=== PATIENT | male | born 1945 | race Caucasian/White ===

== ENCOUNTER 2016-07-30 14:03 | Emergency (ER) | payer MEDICARE, BC ==
--- NOTE | 2016-07-30 14:53 | EDM.PDOC ---
ED HPI GENERAL MEDICAL PROBLEM - General Chief Complaint: Neuro Symptoms/Deficits Stated Complaint: POSSIBLE STROKE Time Seen by Provider: 07/30/16 14:03 Source of Information: Reports: Patient, Family History Limitations: Reports: No Limitations - History of Present Illness INITIAL COMMENTS - FREE TEXT/NARRATIVE: 71 y.o.w. with H/O HTN and hypercholestolemia came to ed with his SO due to naubness of his r face since last night. No Dizziness lightheadedness or any other acute medical issues. Onset: Today Onset Date: 07/29/16 Onset Time: 19:00 Duration: Hour(s): Location: Reports: Face Quality: Reports: Dull Severity: Mild Improves with: Reports: None Worsens with: Reports: None Associated Symptoms: Reports: No Other Symptoms - Related Data Allergies Allergy/AdvReac Type Severity Reaction Status Date / Time hydrocodone Allergy Hallucinati Verified 07/30/16 14:48 ons Home Meds: Home Meds Acyclovir [IJP: Acyclovir] 400 mg PO H #50 tab 07/30/16 [Rx] Aspirin [Halfprin] 81 mg PO DAILY 07/30/16 [History] Lisinopril/Hydrochlorothiazide [Lisinopril-Hctz 20-12.5 mg Tab] 1 each PO DAILY 07/30/16 [History] Lovastatin [Mevacor] 40 mg PO DAILY 07/30/16 [History] Metoprolol Tartrate 25 mg PO BID 07/30/16 [History] Omeprazole 20 mg PO DAILY 07/30/16 [History] Prochlorperazine [Compazine] 10 mg PO ASDIRECTED 07/30/16 [History] Social & Family History - Tobacco Use Smoking Status *Q: Never Smoker - Alcohol Use Days Per Week of Alcohol Use: 0 - Recreational Drug Use Recreational Drug Use: No ED ROS GENERAL - Review of Systems Review Of Systems: See Below Constitutional: Reports: No Symptoms HEENT: Reports: Other (numbnes r cheek) Respiratory: Reports: No Symptoms Cardiovascular: Reports: No Symptoms, Other (pt HR is 47 bpm, takes Metoprolol.) Endocrine: Reports: No Symptoms GI/Abdominal: Reports: No Symptoms : Reports: No Symptoms Musculoskeletal: Reports: No Symptoms Skin: Reports: No Symptoms Neurological: Reports: Other (numbness r face) Psychiatric: Reports: No Symptoms Hematologic/Lymphatic: Reports: No Symptoms Immunologic: Reports: No Symptoms ED EXAM, NEURO - Physical Exam Exam: See Below Exam Limited By: No Limitations General Appearance: Alert, WD/WN, No Apparent Distress Eye Exam: Bilateral Eye: Normal Inspection Ears: Normal External Exam Nose: Normal Inspection Throat/Mouth: Normal Inspection Head Exam: Atraumatic, Normocephalic Neck: Normal Inspection, Supple, Non-Tender, Full Range of Motion Respiratory/Chest: No Respiratory Distress, Lungs Clear, Normal Breath Sounds, No Accessory Muscle Use, Chest Non-Tender Cardiovascular: Bradycardia (Pt is on Metoprolol) GI/Abdominal: Normal Bowel Sounds (Male) Exam: Deferred Rectal (Males) Exam: Deferred Neurological: Alert, Normal Mood/Affect, Normal Dorsiflexion, CN II-XII Intact, Normal Plantar Flexion, Normal Gait Back Exam: Normal Inspection, Full Range of Motion Extremities: Normal Inspection, Normal Range of Motion, Non-Tender, No Pedal Edema Psychiatric: Normal Affect, Normal Mood Skin Exam: Warm, Dry, Intact, Normal Color, No Rash EKG INTERPRETATION EKG Date: 07/30/16 Time: 14:45 Rhythm: NSR Rate (beats/min): 45 Jerome: normal P-wave: present QRS: normal ST-T: normal QT: normal Comparison: NA - no prior EKG Course - Vital Signs Text/Narrative:: 71 y.o.w. with H/O HTN and hypercholestolemia came to te ed with his SO due to naubness of his r face since last night. No Dizziness lightheadedness or any other acute medical issues. PE: Velazquez's palsy r face, central Imaging: CT head, lacunar infarct, calcified vessels. NAD as per RAD Labs: NL WBC, Na, K nl Impression: Nonsymptomatic Bradycardia, Velazquez's palsy Reexam: Pt was stable in the ed Plan: D/C with instructions, Pt was adviced to use artificial tears or tape eyelid if pt does not close his r eye at night. Last Recorded V/S: Last Vital Signs Temp 36.5 C 07/30/16 14:05 Pulse 45 L 07/30/16 14:05 Resp 18 07/30/16 14:05 BP 177/62 H 07/30/16 14:05 Pulse Ox 100 07/30/16 14:05 - Orders/Labs/Meds Orders: Active Orders 24 hr Category Date Time Status EKG 12 Lead [EK] Routine Ther 07/30/16 14:19 Ordered Labs: Laboratory Tests 07/30/16 07/30/16 07/30/16 Range/Units 14:40 14:40 14:40 WBC 9.1 (4.5-12.0) X10-3/uL RBC 4.37 (4.30-5.75) x10(6)uL Hgb 14.1 (11.5-15.5) g/dL Hct 41.4 (30.0-51.3) % MCV 94.7 (80-96) fL MCH 32.2 (27.7-33.6) pg MCHC 34.1 (32.2-35.4) g/dL RDW 12.5 (11.5-15.5) % Plt Count 251 (125-369) X10(3)uL MPV 8.9 (7.4-10.4) fL Neut % (Auto) 59.3 (46-82) % Lymph % (Auto) 29.2 (13-37) % Smyth % (Auto) 9.2 (4-12) % Eos % (Auto) 2 (1.0-5.0) % Baso % (Auto) 0 (0-2) % Neut # (Auto) 5.5 (1.6-8.3) # Lymph # (Auto) 2.6 (0.6-5.0) # Smyth # (Auto) 0.8 (0.0-1.3) # Eos # (Auto) 0.2 (0.0-0.8) # Baso # (Auto) 0.0 (0.0-0.2) # PT 10.7 (8.7-11.1) INR 1.06 (0.89-1.13) Sodium 130 L (135-145) mmol/L Potassium 4.4 (3.5-5.3) mmol/L Chloride 97 L (100-110) mmol/L Carbon Dioxide 26 (23-29) mmol/L BUN 15 (8-23) mg/dL Creatinine 1.1 (0.6-1.3) mg/dL Est Cr Clr Drug Dosing 61.76 mL/min Estimated GFR (MDRD) > 60 (>60) BUN/Creatinine Ratio 13.6 (9-20) Glucose 109 (80-116) mg/dL Calcium 9.6 (8.6-10.2) mg/dL Meds: Medications Discontinued Medications Generic Name Dose Route Start Last Admin Trade Name Gwendolyn PRN Reason Stop Dose Admin Prednisone 60 mg 07/30/16 15:00 Prednisone PO 07/30/16 15:01 ONETIME ONE Departure - Departure Time of Disposition: 15:12 Disposition: Home, Self-Care 01 Condition: good Clinical Impression: Velazquez palsy - Discharge Information Prescriptions: Acyclovir [IJP: Acyclovir] 400 mg PO H #50 tab Instructions: Velazquez Palsy Referrals: Pankaj Martínez MD [Primary Care Provider] - Forms: ED Department Discharge Additional Instructions: Please take the meds as recommended (acyclovis and prednison) Please f/u with your PMD, please come back to the ed if your symptoms get worse acutely - My Orders Last 24 Hours: My Active Orders 07/30/16 14:19 EKG 12 Lead [EK] Routine - Assessment/Plan Last 24 Hours: My Active Orders 07/30/16 14:19 EKG 12 Lead [EK] Routine
[2016-07-30] MEDS ORDERED: predniSONE 10 MG Tab PO ONE (15:00)
--- NOTE | 2016-07-30 15:17 | CT ---
INDICATION: Facial numbness, right. CT HEAD WITHOUT CONTRAST: Serial contiguous 2.5 and 5-mm images of the brain were obtained without contrast, 07/30/2016. No comparisons were available. Total Exam DLP = 949.36 mGy-cm. The visualized paranasal sinuses and mastoid air cells appear well aerated. No cranial abnormality was seen. Calcifications are noted in the vertebral and much more prominently the internal carotid arteries. No shift of midline structures was identified. The lateral ventricles are slightly asymmetrical, which most likely is secondary to a normal variant. Ventricles were otherwise unremarkable. In the caudate nucleus on the right, there is a focal area of decreased density which may represent a lacunar infarct. No other definite abnormal areas of density were identified - no bleeding site or hematoma was seen - no acute intracranial abnormality was suggested. The cortical sulci in the frontal lobe areas and the temporal lobe areas - sylvian fissures - are prominent, compatible with asymmetrical cortical atrophy. IMPRESSION: 1. No definite acute intracranial abnormality. 2. Probable lacunar infarct right caudate nucleus. 3. 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 4. Vertebral and to a greater extent internal carotid artery calcifications compatible with cerebrovascular disease. Report was called to Dr. Christine at 1452 hours, 07/30/2016. [facility]andy
[2016-07-30 15:44] VITALS: BP 147/53
== END 2016-07-30 15:25 | disposition home or self-care (01) ==
LOC: FB.ED 14:03
DX: G51.0 Bell's palsy (principal); Z79.82 Long term (current) use of aspirin; Z79.899 Other long term (current) drug therapy; Z88.5 Allergy status to narcotic agent
CPT/HCPCS: 36415; 70450; 80048; 85025; 85610; 93005; 99284; 99285

== ENCOUNTER 2022-10-27 07:02 | Day surgery (SDC) | payer MEDICARE ==
[~2022-10-27 07:02] MED LIST: Lactated Ringers 1,000 ML IV SCH; Sodium Chloride 0.9% 10 ML Syringe FLUSH PRN
[2022-10-27] MEDS ORDERED: Lidocaine 1% PF 2 ML SDV IV ONE (07:03)
[2022-10-27] MEDS ORDERED: Propofol 200 MG/20 ML SDV IV ONE (07:03)
[2022-10-27 08:14] VITALS: BP 153/77; PULSE 72
[2022-10-27] MEDS ORDERED: Simethicone Drops 40 MG/0.6 ML 30 ML Bottle ONE (08:18)
[2022-10-29 20:08] LABS: ADENOVIRUS F 40/41 Not Detected (Not Detected); ASTROVIRUS Not Detected (Not Detected); C DIFFICILE TOXIN A/B Not Detected (Not Detected); CAMPYLOBACTER Not Detected (Not Detected); CRYPTOSPORIDIUM Not Detected (Not Detected); CYCLOSPORA CAYETANENSIS Not Detected (Not Detected); ENTAMOEBA HISTOLYTICA Not Detected (Not Detected); ENTEROAGGREGATIVE E COLI Not Detected (Not Detected); ENTEROPATHOGENIC E COLI Not Detected (Not Detected); ENTEROTOXIGENIC E COLI Not Detected (Not Detected); GIARDIA LAMBLIA Not Detected (Not Detected); NOROVIRUS GI/GII Not Detected (Not Detected); PLESIOMONAS SHIGELLOIDES Not Detected (Not Detected); ROTAVIRUS A Not Detected (Not Detected); SALMONELLA Not Detected (Not Detected); SAPOVIRUS Not Detected (Not Detected); SHIGA-TOXIN-PRODUCING E COLI Not Detected (Not Detected); SHIGELLA/ENTEROINVASIVE E COLI Not Detected (Not Detected); VIBRIO Not Detected (Not Detected); VIBRIO CHOLERAE Not Detected (Not Detected); YERSINIA ENTEROCOLITICA Not Detected (Not Detected)
== END 2022-10-27 09:54 | disposition home or self-care (01) ==
LOC: FB.SDS 07:02
PROVIDERS: ATTEND Surgery
DX: K52.9 Noninfective gastroenteritis and colitis, unspecified (principal); K57.90 Diverticulosis of intestine, part unspecified, without perforation or abscess without bleeding
CPT/HCPCS: 00811; 87507; 88305; 89055; A9270; J2704; J7120

== ENCOUNTER 2024-10-04 07:45 | Day surgery (SDC) | payer MEDICARE ==
[~2024-10-04 07:45] MED LIST changes: -Lactated Ringers 1,000 ML IV SCH
[2024-10-04] MEDS ORDERED: Lidocaine 1% PF 2 ML SDV IV ONE (07:46)
[2024-10-04] MEDS ORDERED: Propofol 200 MG/20 ML SDV IV ONE (07:46)
[2024-10-04] MEDS: Lactated Ringers 1,000 ML IV SCH (08:14)
[2024-10-04 10:06] VITALS: PULSE 56
[2024-10-04 10:25] VITALS: BP 135/51
[2024-10-05 20:32] LABS: LACTOFERRIN,FECAL BY ELISA Positive (Negative)
[2024-10-07 01:16] LABS: ADENOVIRUS 40/41 PCR Not Detected; ASTROVIRUS PCR Not Detected; CRYPTOSPORIDIUM PCR Not Detected; CYCLOSPORA CAYETANENSIS PCR Not Detected; ENTAMOEBA HISTOLYTICA PCR Not Detected; ENTEROAGGREGATIVE E. COLI PCR Not Detected; ENTEROPATHOGENIC E. COLI PCR Detected; ENTEROTOXIGENIC E. COLI PCR Not Detected; GIARDIA LAMBLIA PCR Not Detected; NOROVIRUS GI/GII PCR Not Detected; PLESIOMONAS SHIGELLOIDES PCR Not Detected; ROTAVIRUS A PCR Not Detected; SALMONELLA PCR Not Detected; SAPOVIRUS PCR Not Detected; SHIG/ENTEROINVASIVE E COLI PCR Not Detected; SHIGA TOXIN-PRODUC E. COLI PCR Not Detected; VIBRIO CHOLERAE PCR Not Detected; VIBRIO PCR Not Detected; YERSINIA ENTEROCOLITICA PCR Not Detected
== END 2024-10-04 10:30 | disposition home or self-care (01) ==
LOC: FB.SDS 07:45
PROVIDERS: ATTEND Surgery
DX: K51.40 Inflammatory polyps of colon without complications (principal); K52.9 Noninfective gastroenteritis and colitis, unspecified; K62.5 Hemorrhage of anus and rectum; I10 Essential (primary) hypertension; E78.5 Hyperlipidemia, unspecified; K21.9 Gastro-esophageal reflux disease without esophagitis; Z79.899 Other long term (current) drug therapy; Z79.82 Long term (current) use of aspirin; Z88.8 Allergy status to other drugs, medicaments and biological substances; Z88.5 Allergy status to narcotic agent
CPT/HCPCS: 00811; 45380; 45384; 83630; 87507; 88305; 99100; A9270; J2003; J2704; J7120